=== PATIENT | male | born 1950 | race Caucasian/White ===

== ENCOUNTER → 2023-07-29 06:29 | Day surgery (SDC) | payer OTHER, SELFPAY | LOC: GI 06:29 | PROVIDERS: ATTENDING PHYSICIAN Internal Medicine Gastroenterology; FAMILY PHYSICIAN Internal Medicine Geriatric Medicine | DX: R10.13 Epigastric pain (principal); K31.89 Other diseases of stomach and duodenum; K29.50 Unspecified chronic gastritis without bleeding | CPT/HCPCS: 43239; 88305; 88342 ==

== ENCOUNTER → 2023-08-06 07:22 | Outpatient (REF) | payer OTHER, SELFPAY | LOC: HWRAD 07:22 | PROVIDERS: ATTENDING PHYSICIAN Internal Medicine Gastroenterology; FAMILY PHYSICIAN Internal Medicine Geriatric Medicine | DX: K82.4 Cholesterolosis of gallbladder (principal); D18.03 Hemangioma of intra-abdominal structures; R10.13 Epigastric pain | CPT/HCPCS: 74177; Q9967 ==

== ENCOUNTER → 2023-08-25 06:20 | Day surgery (SDC) | payer OTHER, SELFPAY | LOC: GI 06:20 | PROVIDERS: ATTENDING PHYSICIAN Internal Medicine Gastroenterology | DX: D12.5 Benign neoplasm of sigmoid colon (principal); K55.20 Angiodysplasia of colon without hemorrhage; K57.30 Diverticulosis of large intestine without perforation or abscess without bleeding; K62.1 Rectal polyp; K64.8 Other hemorrhoids; R19.4 Change in bowel habit; R93.3 Abnormal findings on diagnostic imaging of other parts of digestive tract | CPT/HCPCS: 45385; 88305 ==

== ENCOUNTER 2023-10-26 06:34 | Day surgery (SDC) | payer OTHER, SELFPAY ==
[2023-10-13 07:23] VITALS: BMI 29.0
[2023-10-26] VITALS (11 sets, daily range): BP systolic 135–154; BP diastolic 74–90; BMI 29.0
[2023-10-26] MEDS: TYLENOL 1000 MG PO (08:07)
[2023-10-26] MEDS: NORMOSOL-R 1000 IV (08:08)
--- NOTE | 2023-10-26 12:02 | W.IMMPOSTOP ---
Surgical Immed Post Op Note
-
Primary Surgeon: Alejandra
Assisting: Isaiah RAMIREZ
Pre-op Diagnosis: Bilateral inguinal hernias, incarcerated umbilical hernia
Post-op Diagnosis: Bilateral inguinal hernias, incarcerated umbilical hernia and epigastric hernia
Procedure Performed: Robot assisted laparoscopic repair of bilateral inguinal hernias, incarcerated umbilical hernia and epigastric hernia (rTAPP) [4cm total hernia size]
Anesthesia Type: GETA + TAP block
Specimen / Cultures: None
Estimated Blood Loss: 5cc
Complications: None immediate
Operative Findings: Right indirect defect with large sac completely reduced and large cord lipoma, left femoral hernia; B/L XL MID 3D Max; 1.5cm incarcerated umbilical hernia with fat, 2cm superior to this a [id number] epigastric hernia; 10cm x 10cm
bard soft mesh
--- NOTE | 2023-10-26 12:10 | OR.RPT ---
Operative Report
Operative Report
Primary Surgeon: Alejandra
Assisting: Isaiah RAMIREZ
Pre-op Diagnosis: Bilateral inguinal hernias, incarcerated umbilical hernia
Post-op Diagnosis: Bilateral inguinal hernias, incarcerated umbilical hernia and epigastric hernia
Procedure Performed: Robot assisted laparoscopic repair of bilateral inguinal hernias, incarcerated umbilical hernia and epigastric hernia (rTAPP) [4cm total hernia size]
Anesthesia Type: GETA + TAP block
Specimen / Cultures: None
Estimated Blood Loss: 5cc
Complications: None immediate
Operative Findings: Right indirect defect with large sac completely reduced and large cord lipoma, left femoral hernia; B/L XL MID 3D Max; 1.5cm incarcerated umbilical hernia with fat, 2cm superior to this a [id number] epigastric hernia; 10cm x 10cm
bard soft mesh
Date of surgery: 10/26/23
Indications:� This 73M developed symptomatic right inguinal hernia. On exam imaging and exam a contralateral groin hernia and umbilical hernia were identified as well. He asked that we repair all hernias today. Robot assisted laparoscopic repair was
planned.
Description of procedure:� The patient was taken to the operating room and positioned into supine position. The patient�s abdomen was prepped and draped in standard sterile fashion. A time-out was completed verifying correct patient, procedure,
site, positioning, and implants and special equipment prior to beginning this procedure.� The hernia was manually reduced after induction. A stab incision was made in the left upper quadrant, a Veress needle was inserted and proper position was
confirmed by aspiration and saline drop test. Following this, pneumoperitoneum was created with insufflation of carbon dioxide to 12 mmHg. Then a 8mm robotic trocar was inserted above and to the left of the umbilicus. A laparoscope was inserted and
the area of initial trocar entry and Veress needle placement were both inspected and no injuries were found. Two 8mm trocars were then placed lateral to the rectus sheath under direct visualization.
Both inguinal regions were inspected and the median umbilical ligament, medial umbilical ligament, and lateral umbilical fold were identified. Attention was turned to the right groin. The peritoneum was incised transversely above the defect and a
flap was developed in the caudad direction. Isaac�s ligament was identified ultimately dissected to its junction with the iliac vein and the space of Retzius was developed bluntly.� The dissection was continued inferiorly to the iliopubic tract,
with care taken to avoid injury to the femoral branch of the genitofemoral nerve and the lateral femoral cutaneous nerve. The cord structures were parietalized.
The direct space was inspected and a hernia was not identified. The femoral space was inspected a defect was not identified.� The indirect space was inspected and a hernia was identified. The lareg deep sac was copletely reduced along with a large
cord lipoma. The canal was inspected and no cord lipoma was identified.
Attention was turned to the left groin and the above process was repeated. A femoral hernia was identified. The canal was inspected and a large cord lipoma was reduced by gentle traction.
Extra large right and left MID 3D max mesh was passed through a trocar. The mesh was placed into the preperitoneal space and moved into position to lay flat and completely cover the direct, indirect, and femoral spaces with overlap at the midline.
The mesh was secured into place using 2-0 vicryl suture to Isaac�s ligament medially and laterally. Care was taken to avoid the inferolateral triangles containing the iliac vessels and genital nerves. The peritoneal flap was closed over the mesh
and secured with 2-0 monocryl stratafix suture in similar positions of safety. A 14g angiocath was used to decompress the preperitoneal space revealing good seal and all mesh in good position without folding or curling.
Attention was turned to the umbilicus. The peritoneum was incised transversely several cm superior to the defect. A flap was developed with blunt and sharp dissection in the caudad direction. The hernia was identified and measured as above,
incarcerated fat was reduced and the hernia was closed with 0 PDS stratafix suture. An additional defect superior to theh umbilicus was identified and repaired in similar fashion. An 10 x 10cm piece of bard soft mesh was passed into the abdomen and
placed flush against the abdominal wall centered on the defect. The mesh was secured at all four corners with 2-0 vicryl suture. The flap was closed with 2-0 monocryl suture. A long flap rent on the left side was closed with the 2-0 monocryl
stratafix suture. A 14g angiocath was used to decompress the preperitoneal space revealing good seal and all mesh in good position without folding or curling. A transversus abdominis plane block was then performed under laparoscopic vision with
marcaine/decadron.
After ensuring adequate hemostasis, the trocars were removed and the pneumoperitoneum allowed to escape. The trocar incisions were closed at the skin level using 4-0 monocryl and topical skin adhesive. All counts were correct and the patient
tolerated the procedure well and was taken to the postanesthesia care unit in stable condition.
The assistance of Isaiah RAMIREZ was required due to the complexity of the procedure. During the procedure he assisted with retraction, resection, and closure of the wound.
[2023-10-26] MEDS: ZOFRAN 4 MG IV (13:49)
[2023-10-26] MEDS: TYLENOL 650 MG PO (13:49)
--- NOTE | 2023-10-26 14:21 | PTCARENOTE ---
Report given to ZEYNEP VAZQUEZ.
--- NOTE | 2023-10-26 14:22 | PTCARENOTE ---
Patient nauseated on arrival to [facility]. Zofran 4 mg IV given in SDS. Patient also given Tylenol for pain rated 5/10 in the upper abdomen. Will monitor patient.
[2023-10-26] MEDS: MOTRIN 600 MG PO (14:51)
== END 2023-10-26 16:05 | disposition home or self-care (01) ==
LOC: SDS 06:34
PROVIDERS: ATTENDING PHYSICIAN Surgery; FAMILY PHYSICIAN Internal Medicine Geriatric Medicine
DX: K40.20 Bilateral inguinal hernia, without obstruction or gangrene, not specified as recurrent (principal); K42.0 Umbilical hernia with obstruction, without gangrene; K43.6 Other and unspecified ventral hernia with obstruction, without gangrene; K41.90 Unilateral femoral hernia, without obstruction or gangrene, not specified as recurrent; D17.6 Benign lipomatous neoplasm of spermatic cord
CPT/HCPCS: 49650; 49592; 36415; 93005; C1781

== ENCOUNTER 2024-05-09 11:42 | Emergency (ER) | payer OTHER, SELFPAY ==
[2024-05-09 11:47] VITALS: BP 168/100
[2024-05-09 12:09] LABS: % Basophils 0.5 % (0-2); % Eosinophils 0.3 % (0-6); % Immature Granulocytes 0.3 % (0-0.5); % Lymphocytes 19.7 % (20.5-51.1); % Monocytes 7.5 % (1.7-9.3); % Neutrophils 71.7 % (42.2-75.2); Absolute Lymphocytes 1.3 10^3/uL (1.2-3.4); Absolute Monocytes 0.5 10^3/uL (0.1-0.6); Absolute Neutrophils 4.6 10^3/uL (1.4-6.5); Hematocrit 44.6 % (39.0-52.0); Mean Corp Hgb Conc. 33.6 g/dL (33.0-37.0); Mean Corpuscular Hgb 30.1 pg (27.0-31.0); Mean Corpuscular Volume 89.4 fL (80.0-94.0); Mean Platelet Volume 9.5 fL (7.4-10.4); Nucleated Red Blood Cells % 0 % (-); Platelet Count 255 10^3/uL (130-400); Red Blood Cell Count 4.99 10^6/uL (4.70-6.10); Red Cell Dist. Width 15.5 % (11.5-14.5); White Blood Cell Count 6.4 10^3/uL (4.8-10.8)
[2024-05-09 12:20] LABS: ALT (SGPT) 19 U/L (0-50); AST (SGOT) 23 U/L (17-59); Albumin 4.6 g/dl (3.5-5.0); Alkaline Phosphatase 109 U/L (38-126); Blood Urea Nitrogen 18 mg/dl (9-20); Calcium 9.7 mg/dl (8.4-10.2); Carbon Dioxide 29 mmol/L (22-30); Chloride 103 mmol/L (98-107); Glucose 92 mg/dl (70-99); Potassium 4.1 mmol/L (3.5-5.1); Sodium 143 mmol/L (135-145); Total Bilirubin 1.5 mg/dl (0.2-1.3); Total Protein 7.7 g/dl (6.3-8.2); eGFR > 60.00
[2024-05-09 12:32] LABS: Troponin I < 0.012 ng/ml
[2024-05-09 12:50] VITALS: BMI 27.9
[2024-05-09 12:54] VITALS: BP 150/89
--- NOTE | 2024-05-09 12:59 | EDRN ---
Patient with c/o intermittent chest pain. Patient stated that he has been under a lot of stress at work and the medication that he takes for anxiety is not working and needs a new medication for his anxiety.
[2024-05-09 13:00] VITALS: BP 136/86
[2024-05-09 14:00] VITALS: BP 151/92
--- NOTE | 2024-05-09 14:00 | ED.GENMED ---
History of Present Illness
General
Chief Complaint: Chest Pain
Source: patient
Exam Limitations: none
Time Seen by Provider: 05/09/24 12:56
Nursing documentation reviewed up to this point in time: agreed with
History of Present Illness
History of Present Illness:
74 yo male w h/o HTN, HLD, GERD, anxiety present for palpitations, shaking, chest pains off and on for two weeks, afraid he's having a heart attack. He admits to excessive stress at work and thinks this may be contributing to his symptoms.
Had similar stress reaction December and given rx for Mirtazapine 7.5 2 daily which he stopped in January as it 'wasn't helping at all.' Requesting something different for his anxiety to get him through to Thursday (7 days) when he has appointment with his
PCP Dr. Roldan. He denies, SOB, abdominal pain, n/v/d/c.
Past History
Past History
ED Past Medical History: GERD, HTN, Hypercholesterolemia, Psychiatric (Anxiety) and Other (renal calculi)
ED Past Surgical History: Other (facelift, necklift, rhinoplasty, brow lift, lithotripsy, hernia repair 10/2023)
Social History
Tobacco: Non-smoker
Alcohol: Occasional
Drug: None
Employment: Employed
Review of Systems
Review of Systems
Allergies reviewed?: Yes
All Other Systems: ROS reviewed and negative except as documented in HPI and ROS
Constitutional: Denies fever
Respiratory: Denies trouble breathing
Cardiac: Reports chest pain and palpitations; Denies diaphoresis or syncope
ABD/GI: Denies abdominal pain, nausea, vomiting or diarrhea
: Denies dysuria or difficulty voiding
Musculoskeletal: Reports no symptoms
Skin: Reports no symptoms
Neurological: Reports no symptoms
Psychiatric: Reports anxiety
Phy Exam
Physical Exam
Physical Exam:
GENERAL: No acute distress. A&Ox3.
CONSTITUTIONAL: Afebrile.
EYES: PERRL, conjunctivae normal
ENMT: moist mucus membranes, Pharynx nl
RESPIRATORY: Regular respirations, nonlabored, lungs clear.
CARDIOVASCULAR: Regular rate and rhythm, no murmurs, no rubs.
GI: Soft, nontender, normal BS
MUSCULOSKELETAL: Moves with ease. Well perfused.
SKIN: Warm, dry, pink
PSYCH: Very anxious mood and affect. Well kept, interactive and appropriate
NEUROLOGIC: Awake, alert and oriented. No focal neurological deficits
Scores
Heart Score for Chest Pain Patients
STEMI patient?: Not applicable
Course
Orders/Labs/Results
Orders:
Orders
05/09/24 11:43
EKG [Electrocardiogram (*1)] Urgent
Reason for Study: Chest Pain
EKG- Treatment ONCE
05/09/24 11:59
Complete Blood Count/With Diff Urgent
Comprehensive Metabolic Panel Urgent
Troponin I Urgent
Abnormal Lab Results
05/09/24
11:59
RDW 15.5 H %
(11.5-14.5)
Lymphocytes % 19.7 L %
(20.5-51.1)
Total Bilirubin 1.5 H mg/dl
(0.2-1.3)
05/09/24 11:59
05/09/24 11:59
Vital Signs
Initial and Last Documented VS:
Initial Vital Signs
Temp Pulse Resp BP Pulse Ox
98.1 F 98 16 168/100 100
05/09/24 11:47 05/09/24 11:47 05/09/24 11:47 05/09/24 11:47 05/09/24 11:47
Last Documented Vital Signs
Temp Pulse Resp BP Pulse Ox
98.7 F 76 16 151/92 98
05/09/24 14:25 05/09/24 14:25 05/09/24 14:25 05/09/24 14:25 05/09/24 14:25
MDM/Problems Addressed
MDM/Problems Addressed:
74 yo male w h/o HTN, HLD, GERD, anxiety present for palpitations, shaking, chest pains off and on for two weeks, afraid he's having a heart attack. He admits to excessive stress at work and thinks this may be contributing to his symptoms.
Had similar stress reaction December and given rx for Mirtazapine 7.5 2 daily which he stopped in January as it 'wasn't helping at all.' Requesting something different for his anxiety to get him through to Thursday (7 days) when he has appointment with his
PCP Dr. Roldan. He denies, SOB, abdominal pain, n/v/d/c.
CBC normal
CMP normal
Troponin normal
EKG NSR
Pt is very anxious, repeatedly asking for something to get him through until his appt with PCP in 7 days.
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
No sign of cardiac etiology of symptoms, obviously stressed and anxious
Short regiment of Alprazolam 0.25 BID prn sent to his pharmacy
*Critical Care Note
Total Time (30-74mins, 75-104mins- exclusive of procedures): Not Applicable
ED Attending Note
-
Portions of this chart may have been created with voice recognition software.� Occasional wrong word or��sound alike� substitutions may have occurred due to the inherent limitations of voice recognition software.
Discharge Plan
Departure
Patient Disposition: Home (Routine Discharge)
Date of Disposition: 05/09/24
Time of Disposition: 13:57
Patient with high blood pressure during this ER visit?: No
Condition: Good
Discharge Problem:
Anxiety as acute reaction to exceptional stress
Instructions: Tips to Help You Worry Less, Stress, Anxiety, Adult ED
Prescriptions:
New
alprazolam 0.25 mg tablet
0.25 mg PO BID PRN (Reason: anxiety) Qty: 12 0RF
No Action
atorvastatin 40 mg Tablet
40 mg PO DAILY
tramadol 50 mg Tablet
50 mg PO BID PRN (Reason: PAIN)
tamsulosin 0.4 mg Capsule
0.4 mg PO DAILY
pantoprazole 40 mg Tablet,Delayed Release (Dr/Ec)
40 mg PO DAILY PRN (Reason: REFLUX)
allopurinol 300 mg Tablet
300 mg PO DAILY
finasteride 5 mg Tablet
5 mg PO DAILY
ezetimibe 10 mg Tablet
10 mg PO DAILY
cholecalciferol (vitamin D3) [Vitamin D3] 25 mcg (1,000 unit) Tablet
25 mcg PO DAILY
coQ10 (ubiquinol) 100 mg Capsule
200 mg PO DAILY
cyclobenzaprine 5 mg Tablet
5 mg PO Q8H PRN (Reason: muscle spasms)
Tylenol
500 mg PO Q6H PRN (Reason: pain)
oxycodone 5 mg tablet
5 - 10 mg PO Q4HPRN PRN (Reason: moderate to severe pain) Qty: 20 0RF
oxycodone 5 mg tablet
5 - 10 mg PO Q4HPRN PRN (Reason: moderate to severe pain) Qty: 20 0RF
oxycodone 5 mg tablet
5 - 10 mg PO Q4HPRN PRN (Reason: moderate to severe pain) Qty: 20 0RF
Referrals:
Jordy Roldan MD [Family Provider] - Keep scheduled appt
Activity Restrictions/Additional Instructions:
As we discussed, your workup here today shows nothing worrisome, specifically no sign of a heart attack
Keep your appointment next week with Dr. Roldan to discuss your high levels of anxiety
I sent a prescription to your pharmacy for Alprazolam to take twice a day as needed for anxiety.
Interventions
Interventions:
*Risk Screen - Suicide Last Done: 05/09/24 12:50
*General Assessment Last Done: 05/09/24 12:50
*Neglect/Abuse Screening Last Done: 05/09/24 12:50
ED- Fall Risk Assessment Last Done: 05/09/24 12:50
*ED COVID-19 Vaccine History Last Done: 05/09/24 12:50
*Nursing Disposition Last Done: 05/09/24 14:25
ED- Cardiac Assessment Last Done: 05/09/24 12:50
Discharge Date and Time
Discharge Date/Time: 05/09/24 14:15
Print Language: OCCITAN
--- NOTE | 2024-05-09 14:23 | EDRN ---
Discharge instructions given to patient by Betina REA. Patient stated that he understood his instructions.
[2024-05-09 14:25] VITALS: BP 151/92
== END 2024-05-09 14:15 | disposition home or self-care (01) ==
LOC: EMR 11:42
PROVIDERS: EMERGENCY PHYSICIAN Emergency Medicine; FAMILY PHYSICIAN Internal Medicine Geriatric Medicine
DX: R07.89 Other chest pain (principal); R00.2 Palpitations; F41.1 Generalized anxiety disorder; F43.0 Acute stress reaction; Z56.6 Other physical and mental strain related to work; I10 Essential (primary) hypertension; E78.00 Pure hypercholesterolemia, unspecified; K21.9 Gastro-esophageal reflux disease without esophagitis; K57.90 Diverticulosis of intestine, part unspecified, without perforation or abscess without bleeding; N40.0 Benign prostatic hyperplasia without lower urinary tract symptoms; Z87.442 Personal history of urinary calculi
CPT/HCPCS: 99283; 80053; 84484; 85025; 93005

== ENCOUNTER → 2024-11-29 07:25 | Outpatient (REF) | payer OTHER, SELFPAY | LOC: RAD 07:25 | PROVIDERS: ATTENDING PHYSICIAN Internal Medicine Geriatric Medicine | DX: N40.1 Benign prostatic hyperplasia with lower urinary tract symptoms (principal); E78.5 Hyperlipidemia, unspecified; E78.00 Pure hypercholesterolemia, unspecified | CPT/HCPCS: 76770; 93880 ==

== ENCOUNTER → 2025-01-13 07:54 | Outpatient (REF) | payer OTHER, SELFPAY | LOC: RCS 07:54 | PROVIDERS: ATTENDING PHYSICIAN Nuclear Medicine Nuclear Cardiology; FAMILY PHYSICIAN Internal Medicine Geriatric Medicine | DX: I10 Essential (primary) hypertension (principal); R07.9 Chest pain, unspecified; E78.2 Mixed hyperlipidemia | CPT/HCPCS: 93017; 93350 ==